=== PATIENT | male | born 1965 | race Caucasian/White ===

== ENCOUNTER 2024-10-26 07:18 | Emergency (ER) | payer MEDICAID ==
[~2024-10-26] VITALS: Ht 170.2 cm; Wt 75.0 kg
[2024-10-26 07:25] VITALS: O2SAT 98
[2024-10-26] MEDS ORDERED: KETOROLAC 30MG/ML VIAL IV STA (07:26)
[2024-10-26 08:04] LABS: BASOPHILS % 0.6 % (0.0-2.0); EOSINOPHILS % 0.9 % (0.0-5.0); HEMOGLOBIN. 14.1 g/dL (14.0-18.0); LYMPHOCYTES % 9.2 % (20.0-50.0); MEAN CORPUSCULAR HGB CONC 33.6 g/dL (31.0-37.0); MEAN CORPUSCULAR VOLUME 95.3 fL (80.0-94.0); MONOCYTES % 7.4 % (2.0-8.0); NEUTROPHILS % 81.9 % (40.0-76.0); PLATELET 249 x1000/uL (130-400); RED BLOOD CELL COUNT 4.41 mill/uL (4.7-6.1); RED CELL DISTRIBUTION WIDTH 14.2 % (11.6-14.6); WHITE BLOOD COUNT 9.3 x1000/uL (4.5-11.0)
[2024-10-26 08:09] LABS: CHLORIDE 103 mEq/L (98-107); SODIUM 137 mEq/L (136-145)
[2024-10-26 08:10] LABS: CARBON DIOXIDE 27 mEq/L (21-32)
[2024-10-26 08:11] LABS: CALCIUM 9.5 mg/dL (8.7-10.4)
[2024-10-26 08:15] LABS: CREATININE 1.1 mg/dL (0.6-1.3)
[2024-10-26 08:16] LABS: GLUCOSE 164 mg/dL (70-105); UREA NITROGEN BLOOD 9 mg/dL (9-23)
[2024-10-26 08:17] LABS: ALANINE AMINOTRANSFERASE 17 IU/L (10-49); ALBUMIN 4.4 g/dL (3.2-4.8); ASPARTATE AMINOTRANSFERASE 22 IU/L (<34)
[2024-10-26 08:18] LABS: BILIRUBIN DIRECT 0.2 mg/dL (<=3.0); BILIRUBIN TOTAL 0.9 mg/dL (0.1-1.0); PROTEIN TOTAL 7.2 g/dL (6.0-8.3)
[2024-10-26 08:51] LABS: PROTHROMBIN TIME 10.8 sec (9.6-11.0)
[2024-10-26] MEDS: KETOROLAC 30MG/ML VIAL IV NR (09:41)
[2024-10-26] MEDS: SODIUM CHLORIDE 0.9% 1,000 ML IV ONE (09:42)
[2024-10-26] MEDS ORDERED: TOPUD PO (10:39)
[2024-10-26] MEDS ORDERED: ONDA4TAB50 PO (10:39)
[2024-10-26 10:47] VITALS: BP 121/68; PULSE 92; RESP 16; TEMP 36.89184; O2SAT 98
[2024-10-26 11:27] LABS: CLARITY URINE CLEAR (CLEAR); COLOR URINE DARK YELLOW (YELLOW); GLUCOSE URINE NEGATIVE (NEGATIVE); KETONES URINE TRACE (NEGATIVE); LEUKOCYTE ESTERASE URINE NEGATIVE (NEGATIVE); NITRITE URINE NEGATIVE (NEGATIVE); OCCULT BLOOD URINE NEGATIVE (NEGATIVE); PH URINE 7.5 (4.5-8.0); PROTEIN URINE 1+ (NEGATIVE); SPECIFIC GRAVITY URINE 1.024 (1.005-1.030)
[2024-10-26 11:43] LABS: MUCUS URINE 2+ /lpf (NONE/TRACE)
[2024-10-26 11:44] LABS: WBC URINE 0-2 /hpf (0-2)
[2024-10-26 11:45] LABS: RBC URINE NONE SEEN /hpf (0-2); SQUAMOUS EPITHELIAL CELL URINE RARE /lpf (RARE/1+)
[2024-10-26 11:46] LABS: BACTERIA URINE NONE SEEN
== END 2024-10-26 10:49 | disposition home or self-care (01) ==
LOC: ER 07:18
DX: R10.9 Unspecified abdominal pain (principal)
CPT/HCPCS: 80076; 80048; 81003; 83690; 85025; 85610; 36415; 74176; 96361; 96374; 99285; J1885; J7030; Z7610